=== PATIENT | female | born 1975 | race Caucasian/White ===

== ENCOUNTER 2016-04-27 17:15 | Emergency (ER) | payer OTHER ==
[2016-04-27 17:26] VITALS: BP 136/65; PULSE 68; RESP 16; TEMP 98.1; O2SAT 99
--- NOTE | 2016-04-27 17:45 | UCPHY ---
H & P Patient Type: Established Chief Complaint Nursing Narrative: sore throat x 5 days, fever HPI/ROS: HPI CHIEF COMPLAINT: Sore throat, nasal congestion, anterior maxillary sinus pain, bilateral ear pain HISTORY OF PRESENT ILLNESS: The patient very pleasant 40-year-old female denies any significant medical or surgical history she presents to the urgent care 5 days of sore throat, bilateral ear pain, maxillary sinus pain, congestion and runny nose. No cough, no high fever, no vomiting no shortness of breath no chest pain. Past Medical History: No medical history Past Surgical History: no surgical history Social History: denies daily use drugs alcohol tobacco products Family History: noncontributory ROS REVIEW OF SYSTEMS: A comprehensive 10 point review of systems is otherwise negative aside from elements mentioned in the history of present illness. Exam Constitutional triage nursing summary reviewed, vital signs reviewed, awake/ alert. Eyes normal conjunctivae and sclera, EOMI, PERRLA. HENT bilateral TMs are erythematous, fluid-filled, no significant bulge, posterior pharynx is normal uvula midline, no signs of VERTICAL PUNCH OPERATOR, RPA, Nirav's, no exudate no signs of abscess, no significant lymphadenopathy, normal inspection , atraumatic, moist mucus membranes, no epistaxis, neck supple/ no meningismus, no raccoon eyes. Face: Tender palpation over the maxillary sinus. Respiratory clear to auscultation bilaterally, normal breath sounds, no respiratory distress, no wheezing. Cardiovascular rate normal, regular rhythm, no murmur, no edema, distal pulses normal. Gastrointestinal soft, non-tender, no rebound, no guarding, normal bowel sounds, no distension, no pulsatile mass. Genitourinary no CVA tenderness. Musculoskeletal no midline vertebral tenderness, full range of motion, no calf swelling, no tenderness of extremities, no meningismus, good pulses, neurovascularly intact. Skin pink, warm, & dry, no rash, skin atraumatic. Neurologic awake, alert and oriented x 3, AAOx3, moves all 4 extremities equally, motor intact, sensory intact, CN II-XII intact, normal cerebellar, normal vision, normal speech. Psychiatric normal mood/affect. Heme/Lymph/Immune no lymphadenopathy. Differential Diagnosis: Upper respiratory tract infection, viral syndrome, acute sinusitis, strep pharyngitis Medical Decision Making: This patient appears well here nontoxic as bilateral inflamed TMs with some fluid behind it, anterior maxillary sinus pain and congestion. I will place her on guaifenesin decongestion, azithromycin antibiotic for acute sinusitis and ibuprofen for pain control. She understands drink lots of fluids, return to the urgent care or emergency room if there is any worsening symptoms questions or concerns. Source: Patient - Personal History LMP (Females 10-55): 1-7 Days Ago - Medical/Surgical History Hx Asthma: No Hx Chronic Respiratory Disease: No Hx Diabetes: No Hx Cardiac Disease: No Hx Renal Disease: No Hx Cirrhosis: No Hx Alcoholism: No Hx HIV/AIDS: No Hx Splenectomy or Spleen Trauma: No Other PMH: denies - Family History Significant Family History: No pertinent family hx - Social History Smoking Status: Never smoked Constitutional: Initial Vital Signs Temperature (C) 36.7 C 04/27/16 17:25 Heart Rate 68 04/27/16 17:25 Respiratory Rate 16 04/27/16 17:25 Blood Pressure 136/65 H 04/27/16 17:25 O2 Sat (%) 99 04/27/16 17:25 O2 Delivery Mode Room Air Allergies/Adverse Reactions: No Known Allergies Allergy (Verified 05/03/14 16:49) Home Medications: Medication Instructions Recorded Obcp 06/07/12 AZITHROMYCIN [Z-PACK] 250 mg PO DAILY #6 tab 04/27/16 Guaifenesin [Guaifenesin ER] 600 mg PO BID #14 tab.er.12h 04/27/16 Ibuprofen [Motrin (*)] 800 mg PO Q6-8PRN #7 tab 04/27/16 Medical Decision Making - Data Points Laboratory Results: 04/27/16 04/27/16 Unknown 17:25 Group A Strep Screen NEGATIVE (NEGATIVE) Group A Strep DNA Pending Departure - Departure Disposition: Home, Routine, Self-Care Clinical Impression: Upper respiratory tract infection Qualifiers: URI type: unspecified URI Qualified Code(s): J06.9 - Acute upper respiratory infection, unspecified Sinusitis Qualifiers: Sinusitis location: maxillary Chronicity: acute Recurrence: non-recurrent Qualified Code(s): J01.00 - Acute maxillary sinusitis, unspecified Condition: Good Instructions: Upper Respiratory Infection (ED) Additional Instructions: 1. drink lots of fluids stay well-hydrated 2. take Tylenol or Motrin for fever and pain control. 3.Take antibiotic as prescribed Referrals: Raquel Liu DO [Primary Care Provider] - As per Instructions Prescriptions: AZITHROMYCIN [Z-PACK] 250 mg PO DAILY #6 tab Guaifenesin [Guaifenesin ER] 600 mg PO BID #14 tab.er.12h Ibuprofen [Motrin (*)] 800 mg PO Q6-8PRN #7 tab - PQRS PQRS Measurement: n/a
== END 2016-04-27 18:05 | disposition home or self-care (01) ==
LOC: CED 17:15
DX: J06.9 Acute upper respiratory infection, unspecified (principal); J01.00 Acute maxillary sinusitis, unspecified; H92.03 Otalgia, bilateral
CPT/HCPCS: 87880-PO; 99214-PO; G0463-PO

== ENCOUNTER 2017-04-28 02:22 | Emergency (ER) | payer OTHER ==
[2017-04-28 02:32] VITALS: BP 130/81; PULSE 67; RESP 18; TEMP 97.7; O2SAT 94
--- NOTE | 2017-04-28 02:49 | EDPHY ---
H & P Time Seen by Provider: 04/28/17 02:29 HPI/ROS: CHIEF COMPLAINT: tooth ache HISTORY OF PRESENT ILLNESS: There is been some mild discomfort with food pocket between teeth numbers 10 and 11 off and on for quite some time. However , in the last 24 hr it has become progressively more painful. It is so bad tonight that she cannot sleep. She has tried clear the food pocket as usual numerous times, however it has not helped this time. She does not report any foul drainage or swelling. She complains of pain emanating from the bottom row of the 4 teeth on the right going toward the angle of mandible. She has not sustained any trauma. Of note, is that she is 32 weeks . has been going well. She recalls being on Vicodin post operative several years ago and finding it making her irritable. P worse with opening her mouth Q achiness R no radiation, the bottom for teeth on the right S severe enough that she cannot sleep T progressive over the last 2 days Discharge none Trismus none Trauma none REVIEW OF SYSTEMS: Gen: No fevers or chills. Respiratory: No cough, no dyspnea. Smoking Status: Never smoked Physical Exam: General: Well-developed well-nourished. Nontoxic. HEENT: Membranes moist. No foul odor. There is no trismus. There is no drainage within the mouth nor pointing at the alveolar ridge. . There is no discernible dental decay. Submandibular adenopathy is not noted. She is not tender to percussion of these individual teeth. There is no inflammation at the site in question between teeth numbers 10 and 11. There is no submandibular adenopathy. Constitutional: Initial Vital Signs Temperature (C) 36.5 C 04/28/17 02:29 Heart Rate 67 04/28/17 02:29 Respiratory Rate 18 04/28/17 02:29 Blood Pressure 130/81 H 04/28/17 02:29 O2 Sat (%) 94 04/28/17 02:29 O2 Delivery Mode Room Air Allergies/Adverse Reactions: No Known Allergies Allergy (Verified 04/28/17 02:32) Home Medications: Medication Instructions Recorded Aspirin 81mg (*) 04/28/17 Penicillin V Potassium 500 mg PO QID #40 tablet 04/28/17 Medical Decision Making Procedures: Infraorbital nerve block was achieved using 4 cc of 0.5% Marcaine which she tolerated well. However, it did not work completely. Thereby additional 4 cc was used for combined infraorbital nerve block as well as buccal nerve block. Again this was tolerated well. There is no blood loss. The area was then massaged to enhance distribution. Differential Diagnosis: Diagnostic considerations include, but are not limited to, the following: Abscess, facial abscess, facial cellulitis, Nirav's Angina, Retropharyngeal abscess, deep space facial infection, dental caries. - Data Points Medications Given: Discontinued Medications Penicillin V Potassium (Pen Vk 250 Mg Prepack#6) 1 btl TAKEHOME EDNOW ONE PRN Reason: Protocol Stop: 04/28/17 02:52 Last Admin: 04/28/17 02:57 Dose: 1 btl Departure - Departure Disposition: Home, Routine, Self-Care Clinical Impression: Pain, dental, Dental abscess Condition: Good Instructions: Penicillin V (By mouth), Dental Abscess (ED) Additional Instructions: Clean the area that is suspicious for food pocket after meals and between meals. However, do not over do it. Penicillin 500 mg 4 times daily for the next 10 days. Call your manager managed backup services to see if she should be taking some probiotics with this. No Tylenol for the next 12 hr as you have taken plenty in the last 6 hr. Just to reiterate, no ibuprofen or Aleve. Referrals: Patient,NotPresent [Primary Care Provider] - As per Instructions Prescriptions: Penicillin V Potassium 500 mg PO QID #40 tablet
[2017-04-28] MEDS ORDERED: PENICILLIN VK 250MG PREPACK#6 BTL TAKEHOME ONE (02:51)
== END 2017-04-28 03:29 | disposition home or self-care (01) ==
LOC: CED 02:22
PROC: 3E0X3BZ Introduction of Anesthetic Agent into Cranial Nerves, Percutaneous Approach (ICD-10-PCS; principal; 2017-04-28)
DX: O99.613 Diseases of the digestive system complicating pregnancy, third trimester (principal); K04.7 Periapical abscess without sinus; Z3A.32 32 weeks gestation of pregnancy; Z79.82 Long term (current) use of aspirin

== ENCOUNTER 2017-06-02 20:11 | Emergency (ER) | payer OTHER ==
[2017-06-02 20:33] LABS: PLATELET COUNT 241 10^3/uL (150-400)
--- NOTE | 2017-06-02 20:39 | CPEKG ---
Heart Rate: 62 RR Interval: 968 P-R Interval: 156 QRSD Interval: 94 QT Interval: 436 QTC Interval: 443 P [place]: 57 QRS [place]: 87 T Wave [place]: 45 EKG Severity - ABNORMAL ECG - EKG Impression: SINUS RHYTHM EKG Impression: MULTIPLE VENTRICULAR PREMATURE COMPLEXES Electronically Signed By: Gurpreet Rodriguez 02-Jun-2017 22:22:47
[2017-06-02] MEDS ORDERED: HYOSCYAMINE SULFATE 0.125 MG TAB ONE (20:41)
[2017-06-02] MEDS ORDERED: NS 1,000 ML IV ONE ×2 (20:44→21:45)
[2017-06-02] MEDS ORDERED: ONDANSETRON 4 MG/2 ML VIAL IVP ONE (20:44)
[2017-06-02] MEDS ORDERED: HYOSCYAMINE SULFATE 0.125 MG TAB PO ONE (20:48)
--- NOTE | 2017-06-02 20:54 | CPEKG ---
Heart Rate: 64 RR Interval: 938 P-R Interval: 152 QRSD Interval: 98 QT Interval: 420 QTC Interval: 434 P [place]: 58 QRS [place]: 94 T Wave [place]: 50 EKG Severity - ABNORMAL ECG - EKG Impression: SINUS RHYTHM EKG Impression: MULTIPLE VENTRICULAR PREMATURE COMPLEXES EKG Impression: PROBABLE LEFT ATRIAL ABNORMALITY EKG Impression: BORDERLINE RIGHT AXIS DEVIATION Electronically Signed By: Gurpreet Rodriguez 02-Jun-2017 22:22:59
[2017-06-02] MEDS ORDERED: fentaNYL 100 MCG/2 ML INJ IVP ONE ×2 (20:57→21:03)
[2017-06-02] MEDS ORDERED: IOPAMIDOL (ISOVUE 370) 100 ML BTL IV ONE (21:00)
[2017-06-02] MEDS: fentaNYL 100 MCG/2 ML INJ IVP ONE ×2 (21:05→21:15)
[2017-06-02] MEDS ORDERED: HYDROmorphONE/DILAUDID 2 MG/ML INJ IVP ONE ×3 (21:37→22:17)
[2017-06-02] MEDS ORDERED: ERTAPENEM 1 GM VIAL IV ONE ×2 (21:51→22:03)
[2017-06-02] MEDS ORDERED: PANTOPRAZOLE SODIUM 40 MG VIAL IVP ONE (22:01)
--- NOTE | 2017-06-02 22:07 | EDPHY ---
H & P Stated Complaint: left shoulder pain,abdominal pain for 2hours Time Seen by Provider: 06/02/17 20:31 HPI/ROS: This patient delivered uncomplicated vaginal delivery at [facility] 6 days prior to arrival. She did developfevers and abdominal pain on Monday 3 days after delivery and was evaluated [facility] cleaning a pelvic exam and lumbar punctures she also had a mild headache at that time. She reports that the workup was negative. However after consultation with her OBGYN the felt that she should be covered for potential endometritis and was started on Augmentin antibiotic. She has been taking Augmentin since then with resolution of her fevers. However at 1730 tonight while at rest lying on her right side she developed abrupt onset of left lower chest pain versus left upper quadrant abdominal pain 9/10 intensity sharp in nature, worse with movement and worse with a deep breath. The pain radiates to her left shoulder. She has never had this pain before. She does describe a similar pain of lesser intensity after she had gastric bypass surgery however. She does not feel she has any abdominal distension on the fact she feels she is has less abdominal girth now over the past few days. She is passing gas and having normal bowel movements. ROS: Fevers earlier in the week resolved with Augmentin. No other constitutional symptoms HEENT: No complaints pulmonary: Dyspnea since the onset of pain tonight. She feels this worsens when she lies supine. Cardiovascular: She denies any heart palpitations. She has not noticed any leg swelling or pain. GI: She reports no dark tarry stools. She has nausea but no vomiting. She had been tolerating a normal diet prior to this. Last p.o. Intake was about biite of pizza at 7:30 p.m.. Last meal was lunch time-sandwich : No urinary symptoms. She reports mild persistent lochia rubra that has significantly diminished since delivery. Integumentary: No rash. Neuro: Mild frontal headache currently. She attributed headache since her LP to a spinal headache but reports that has been improving this week. No focal numbness tingling weakness. No confusion. No neck stiffness. Complete review of symptoms is otherwise negative. Source: Patient Exam Limitations: No limitations - Personal History Current Tetanus Diphtheria and Acellular Pertussis (TDAP): Yes Tetanus Vaccine Date: 2017 - Medical/Surgical History PMH: Gastric bypass surgery Family history notable for mother with DVT or PE Hx Asthma: No Hx Chronic Respiratory Disease: No Hx Diabetes: No Hx Cardiac Disease: No Hx Renal Disease: No Hx Cirrhosis: No Hx Alcoholism: No Hx HIV/AIDS: No Hx Splenectomy or Spleen Trauma: No Other PMH: Pre-eclampsia 10 years ago, Bariatric surgery. - Family History Significant Family History: Other (Mother with DVT or PE) - Social History Smoking Status: Never smoked Alcohol Use: None Drug Use: None - Physical Exam Exam: General Appearance: Alert, in distress due to pain. Eyes: Pupils equal and round no pallor or injection. ENT, Mouth: Mucous membranes moist. Respiratory: Quiet slight tachypnea. Cardiovascular: Regular rate and rhythm with occasional extra beats from PVCs. No rub. No JVD. No peripheral edema. No calf swelling or tenderness Gastrointestinal: Hypoactive, soft, exquisite upper belly tenderness epigastrium left upper quadrant. Back: Left CVA tenderness verses referred belly pain. No right CVA tenderness Neurological: GCS 15 with no focal deficits Skin: Notable for pallor. Musculoskeletal: Neck is supple nontender. Extremities are symmetrical, full range of motion. Psychiatric: Alert and anxious due to pain. DIFFERENTIAL DIAGNOSIS: After history and physical exam differential diagnosis was considered for pulmonary embolism, acute abdomen, myocardial ischemic disease, pneumonia, pneumothorax, splenic thrombosis Constitutional: Initial Vital Signs Temperature (C) 36.6 C 06/02/17 21:16 Heart Rate 69 06/02/17 21:16 Respiratory Rate 22 H 06/02/17 21:16 Blood Pressure 138/83 H 06/02/17 21:16 O2 Sat (%) 94 06/02/17 21:16 O2 Delivery Mode Room Air Allergies/Adverse Reactions: adhesive Allergy (Verified 06/02/17 21:07) Home Medications: Medication Instructions Recorded Augmentin 875 MG TAB (*) 06/02/17 CeleXA 20 MG 06/02/17 Medical Decision Making - Diagnostics EKG Interpretation: 12 lead EKG performed at 2036 reveals sinus rhythm at 62 Intervals: Normal throughout [place]: P of 57, QRS of 87, T of 45 degrees presence of multiple PVCs. Overall assessment sinus rhythm with multiple PVCs and borderline right axis deviation. Imaging Results: Imaging Impressions Chest/Thorax CTA 06/02/17 20:49 Impression: 1. No evidence of pulmonary embolus using CT protocol. 2. Small bilateral pleural effusions with some dependent edema at the lung bases posteriorly. 3. Free air within the upper abdomen. This could potentially be related to the previous gastric surgery. Subsequent CT imaging was performed for further characterization of the abdomen and pelvis. Findings discussed with Gurpreet Rodriguez M.D. at 21:55 hour, 06/02/2017. Abdomen/Pelvis CT 06/02/17 21:56 Impression: 1. Free air predominantly in the upper abdomen that appears to originate from gastric bypass surgical clip region just below the GE junction. If indicated, repeat imaging through the upper abdomen can be performed after oral contrast administration as clinically directed. 2. Complex free fluid is seen in the colic gutters extending into the upper iliac fossa bilaterally right side greater than left probably related to blood products. 3. uterus. 4. Mildly dilated small bowel loops within the lower abdomen to upper pelvis that appears to be secondary to focal ileus. Findings discussed with Gurpreet Rodriguez M.D. at 22:28 hour, 06/02/2017. Imaging: Discussed imaging studies w/ traffic engineering technician Radiologist ED Course/Re-evaluation: IV, monitor, normal saline bolus review of labs-normal CBC with sepsis slight anemia crit 34, basic metabolic panel normal Levsin sublingual initially without improvement, Zofran for nausea with improvement 4 mg IV Fentanyl 100 mcg with partial relief prior to CT angio chest Upon return from CT patient is treated with Dilaudid 1 mg IV with partial improvement. I counseled the patient regarding free air evident on CT chest. Patient requested [facility] for her transfer. Transport is call the patient is sent to CT for CT abdomen pelvis while we await for her transport. Patient is given 1 g of Invanz IV push and also treated with Protonix 80 mg IV I spoke with at a [facility] accepts patient for transfer. I spoke with Dr. Mauri Mckeon, general surgeon on-call for [facility] due will see the patient when she arrives at [facility]. At 10:18 p.m. The patient still having severe abdominal pain treated with the 2nd mg of Dilaudid IV She is on her 2nd L saline. Her vitals remained stable. I spoke with Dr. Raya, radiologist about her CT abdomen pelvis the as EMS arrived with findings that appear consistent with perforation at the anastomosis in the upper stomach at the site of her prior gastric bypass. I did speak with Dr. Gibbs regarding the CT abd/pelvis findings while the pt. is enroute to [facility] Total critical care bedside time: 25 min - Data Points Laboratory Results: Laboratory Results 06/02/17 20:30 06/02/17 20:30 06/02/17 06/02/17 06/02/17 20:30 20:30 20:30 WBC RBC Hgb Hct MCV MCH MCHC RDW Plt Count MPV Neut % (Auto) Lymph % (Auto) [place] % (Auto) Eos % (Auto) Baso % (Auto) Nucleat RBC Rel Count Absolute Neuts (auto) Absolute Lymphs (auto) Absolute Monos (auto) Absolute Eos (auto) Absolute Basos (auto) Absolute Nucleated RBC Immature Gran % Immature Gran # Sodium 137 mEq/L mEq/L (135-145) Potassium 3.3 mEq/L L mEq/L (3.5-5.2) Chloride 109 mEq/L mEq/L (97-110) Carbon Dioxide 18 mEq/l L mEq/l (22-31) Anion Gap 10 mEq/L mEq/L (8-16) BUN 16 mg/dL mg/dL (7-23) Creatinine 0.7 mg/dL mg/dL (0.6-1.0) Estimated GFR > 60 Glucose 83 mg/dL mg/dL (70-100) Calcium 8.5 mg/dL mg/dL (8.5-10.4) Troponin I < 0.012 ng/mL ng/mL (0.000-0.034) Lipase 39 IU/L IU/L (23-300) 06/02/17 20:30 WBC 5.33 10^3/uL 10^3/uL (3.80-9.50) RBC 3.88 10^6/uL L 10^6/uL (4.18-5.33) Hgb 11.1 g/dL L g/dL (12.6-16.3) Hct 33.7 % L % (38.0-47.0) MCV 86.9 fL fL (81.5-99.8) MCH 28.6 pg pg (27.9-34.1) MCHC 32.9 g/dL g/dL (32.4-36.7) RDW 15.4 % H % (11.5-15.2) Plt Count 241 10^3/uL 10^3/uL (150-400) MPV 9.8 fL fL (8.7-11.7) Neut % (Auto) 62.2 % % (39.3-74.2) Lymph % (Auto) 31.4 % % (15.0-45.0) [place] % (Auto) 3.1 % L % (4.5-13.0) Eos % (Auto) 0.7 % % (0.6-7.6) Baso % (Auto) 0.4 % % (0.3-1.7) Nucleat RBC Rel Count 0.0 % % (0.0-0.2) Absolute Neuts (auto) 3.39 10^3/uL 10^3/uL (1.70-6.50) Absolute Lymphs (auto) 1.71 10^3/uL 10^3/uL (1.00-3.00) Absolute Monos (auto) 0.17 10^3/uL L 10^3/uL (0.30-0.80) Absolute Eos (auto) 0.04 10^3/uL 10^3/uL (0.03-0.40) Absolute Basos (auto) 0.02 10^3/uL 10^3/uL (0.02-0.10) Absolute Nucleated RBC 0.00 10^3/uL 10^3/uL (0-0.01) Immature Gran % 2.2 % H % (0.0-1.1) Immature Gran # 0.12 10^3/uL H 10^3/uL (0.00-0.10) Sodium Potassium Chloride Carbon Dioxide Anion Gap BUN Creatinine Estimated GFR Glucose Calcium Troponin I Lipase Medications Given: Discontinued Medications Ertapenem (Invanz) 1 gm IV EDNOW ONE PRN Reason: Protocol Stop: 06/02/17 21:52 Last Admin: 06/02/17 21:55 Dose: 1 gm Ertapenem (Invanz) 1 gm IV EDNOW ONE PRN Reason: Protocol Stop: 06/02/17 22:04 Last Admin: 06/02/17 22:23 Dose: Not Given Fentanyl (Sublimaze) 50 mcg IVP EDNOW ONE Stop: 06/02/17 21:04 Last Admin: 06/02/17 21:05 Dose: 50 mcg Fentanyl (Sublimaze) 50 mcg IVP EDNOW ONE Stop: 06/02/17 20:58 Last Admin: 06/02/17 21:13 Dose: 50 mcg Fentanyl (Sublimaze) 50 mcg IVP EDNOW ONE Stop: 06/02/17 20:58 Last Admin: 06/02/17 21:15 Dose: Not Given Hydromorphone HCl (Dilaudid) 1 mg IVP EDNOW ONE Stop: 06/02/17 21:38 Last Admin: 06/02/17 21:48 Dose: 1 mg Hydromorphone HCl (Dilaudid) 1 mg IVP EDNOW ONE Stop: 06/02/17 22:17 Last Admin: 06/02/17 22:21 Dose: 1 mg Hydromorphone HCl (Dilaudid) 1 mg IVP EDNOW ONE Stop: 06/02/17 22:18 Last Admin: 06/02/17 22:24 Dose: Not Given Hyoscyamine Sulfate (Levsin, Hyomax-Sl) 0.25 mg PO EDNOW ONE Stop: 06/02/17 20:49 Last Admin: 06/02/17 20:59 Dose: 0.25 mg Sodium Chloride (Ns) 1,000 mls @ 0 mls/hr IV EDNOW ONE; [place] PRN Reason: Protocol Stop: 06/02/17 20:45 Last Admin: 06/02/17 20:57 Dose: 1,000 mls Ondansetron HCl (Zofran) 4 mg IVP EDNOW ONE Stop: 06/02/17 20:45 Last Admin: 06/02/17 20:45 Dose: 4 mg Pantoprazole Sodium (Protonix) 80 mg IVP EDNOW ONE Stop: 06/02/17 22:02 Last Admin: 06/02/17 22:10 Dose: 80 mg Departure - Departure Disposition: Acute Care Hospital Not [facility] Clinical Impression: Acute abdomen, Free intraperitoneal air Condition: Serious Referrals: Zainab Phelps MD [Primary Care Provider] - As per Instructions
[2017-06-02 22:59] VITALS: BP 104/62; PULSE 79; RESP 21; TEMP 98.8; O2SAT 92
== END 2017-06-02 22:40 | disposition short-term general hospital (02) ==
LOC: CED 20:11
DX: O99.89 Other specified diseases and conditions complicating pregnancy, childbirth and the puerperium (principal); R10.0 Acute abdomen; K66.8 Other specified disorders of peritoneum; O99.63 Diseases of the digestive system complicating the puerperium; E86.9 Volume depletion, unspecified
CPT/HCPCS: 71275-PO; 74176-PO; 80048-PO; 83690-PO; 84484-PO; 85025-PO; 96374; J1170; J1335; J2405; Q9967

== ENCOUNTER 2018-03-26 00:11 | Emergency (ER) | payer OTHER ==
[2018-03-26] MEDS ORDERED: ONDANSETRON 4 MG/2 ML VIAL ONE (00:41)
[2018-03-26] MEDS ORDERED: NS 1,000 ML IV ONE ×2 (00:46→01:20)
--- NOTE | 2018-03-26 00:46 | EDPHY ---
H & P Stated Complaint: "all over" abd pain with nausea since 2015 this evening. Time Seen by Provider: 03/26/18 00:23 HPI/ROS: 42 yo F with hx of gastric bypass, and surgery for gastric ulcer presents c/o nausea, dry heaves, crampy abdominal pain. She denies diarrhea, has had some constipation this weekend. She states her nausea began when her was using a cleaning fluid that she is very sensitive to this evening , and then the pain and dry heaves began around 8pm. Review of systems General no fever no chills no weakness HEENT no eye pain no eye discharge. No eye redness, no sore throat Respiratory no cough, no shortness of breath Cardiac no chest pain, no peripheral edema GI pos abd pain, nausea, dry heaves, no diarrhea, some constipation no flank pain, no hematuria, no dysuria Musculoskeletal no myalgias, no joint pain Heme no easy bruising, no easy bleeding Endo no polyuria, no polydipsia Skin no rashes, no pruritus Neuro no syncope, no dizziness, no headaches Psych is no suicidal ideation, no homicidal ideation Source: Patient, Family Exam Limitations: No limitations - Personal History LMP (Females 10-55): Over 28 Days Ago Current Tetanus Diphtheria and Acellular Pertussis (TDAP): Yes Tetanus Vaccine Date: 2017 - Medical/Surgical History Hx Asthma: No Hx Chronic Respiratory Disease: No Hx Diabetes: No Hx Cardiac Disease: No Hx Renal Disease: No Hx Cirrhosis: No Hx Alcoholism: No Hx HIV/AIDS: No Hx Splenectomy or Spleen Trauma: No Other PMH: Pre-eclampsia 10 years ago, Bariatric surgery, GERD, anxiety. - Family History Significant Family History: No pertinent family hx - Social History Smoking Status: Never smoked Alcohol Use: None Drug Use: None - Physical Exam Exam: 42 yo F alert an oriented , tachyypneic, anxious, pale no diaphoresis, afebrile at,nc eomi, anicteric neck no jvd lungs cta bilat heart rrr abd non dist , bs present, soft , tympanitic, ttp ruq, epigastric, luq no pulsatile mass, no guarding and no rebound ext no cce Constitutional: Initial Vital Signs Temperature (C) 36.7 C 03/26/18 00:18 Heart Rate 76 03/26/18 00:18 Respiratory Rate 22 H 03/26/18 00:18 Blood Pressure 122/76 H 03/26/18 00:18 O2 Sat (%) 97 03/26/18 00:18 O2 Delivery Mode Room Air Allergies/Adverse Reactions: adhesive Allergy (Verified 03/26/18 00:13) Home Medications: Medication Instructions Recorded CeleXA 20 MG 06/02/17 LORazepam [Lorazepam] 03/26/18 Omeprazole 03/26/18 Medical Decision Making ED Course/Re-evaluation: pt seen and evaluated for abdominal pain, nausea iv established, labs drawn iv normal saline 1 liter ondansetron 4 mg ivp lorazepam 1 mg ivp CBC wnl lactate 1.6 cmp nml lfts, bicrb 19, otherwise normal Lipase normal urine dip sp grav 1030, ketones present, neg nit,neg leuk est given a second liter of normal saline she is feeling markedly improved, no further abdominal pain and no nausea, no vomiting Tolerating p.o. Imp Nausea, dehydration Fumes exposure that started the nausea Plan rest dc home return if pain returns f/u pcp Differential Diagnosis: Differential diagnosis considered but not limited to: Cholecystitis, pancreatitis, appendicitis, bowel obstruction, gastroenteritis, enteritis, anxiety, reaction to fume exposure, dehydration - Data Points Laboratory Results: 03/26/18 03/26/18 03/26/18 00:56 00:41 00:40 POC Sodium 141 mEq/L mEq/L (135-145) POC Potassium 4.0 mEq/L mEq/L (3.3-5.0) POC Chloride 110.0 mEq/L mEq/L (97-110) POC Total CO2 19 mEq/L L mEq/L (22-31) POC BUN 15 mg/dL mg/dL (7-23) POC Creatinine 0.8 mg/dL mg/dL (0.6-1.0) POC Glucose 149 mg/dL H mg/dL (70-100) POC Lactic Acid Osmel 1.6 mmol/L mmol/L (0.7-2.1) POC Calcium 9.3 mg/dL mg/dL (8.5-10.4) POC Total Bilirubin 1.3 mg/dL mg/dL (0.1-1.4) POC AST 38 IU/L IU/L (14-46) POC ALT 32 IU/L IU/L (9-52) POC Alk Phosphatase 91 IU/L IU/L (38-126) POC Total Protein 6.8 g/dL g/dL (6.3-8.2) POC Albumin 4.5 g/dL g/dL (3.5-5.0) Lipase 94 IU/L IU/L (23-300) Medications Given: Discontinued Medications Sodium Chloride (Ns) 1,000 mls @ 0 mls/hr IV ONCE ONE PRN Reason: Wide Open Stop: 03/26/18 00:47 Last Admin: 03/26/18 00:50 Dose: 1,000 mls Sodium Chloride (Ns) 1,000 mls @ 0 mls/hr IV EDNOW ONE; Wide Open PRN Reason: Protocol Stop: 03/26/18 01:21 Last Admin: 03/26/18 01:21 Dose: 1,000 mls Lorazepam (Ativan Injection) 1 mg IVP EDNOW ONE Stop: 03/26/18 00:49 Last Admin: 03/26/18 01:01 Dose: 1 mg Ondansetron HCl (Zofran) 4 mg IVP EDNOW ONE Stop: 03/26/18 00:48 Last Admin: 03/26/18 00:49 Dose: 4 mg Ondansetron HCl (Zofran) 4 mg IVP EDNOW ONE Stop: 03/26/18 00:48 Last Admin: 03/26/18 00:59 Dose: Not Given Point of Care Test Results: CBC CBC Collection Date 03/26/18 CBC Collection Time 00:40 WBC 9.4 RBC 4.51 HGB 14.3 HCT 41.9 PLT 272 Neut # 7.8 Neut 82.5 LYMPH # 0.8 LYMPH 8.7 Other WBC # 0.8 Other WBC 8.8 MCV 92.9 Chemistry 03/26/18 00:41 POC Sodium 141 mEq/L mEq/L (135-145) POC Potassium 4.0 mEq/L mEq/L (3.3-5.0) POC Chloride 110.0 mEq/L mEq/L (97-110) POC Total CO2 19 mEq/L L mEq/L (22-31) POC BUN 15 mg/dL mg/dL (7-23) POC Creatinine 0.8 mg/dL mg/dL (0.6-1.0) POC Glucose 149 mg/dL H mg/dL (70-100) POC Calcium 9.3 mg/dL mg/dL (8.5-10.4) POC Total Bilirubin 1.3 mg/dL mg/dL (0.1-1.4) POC AST 38 IU/L IU/L (14-46) POC ALT 32 IU/L IU/L (9-52) POC Alk Phosphatase 91 IU/L IU/L (38-126) POC Total Protein 6.8 g/dL g/dL (6.3-8.2) POC Albumin 4.5 g/dL g/dL (3.5-5.0) Blood Gas/Lactic Acid-Venous 03/26/18 00:56 POC Lactic Acid Osmel 1.6 mmol/L mmol/L (0.7-2.1) Urine Collection Date 03/26/18 Collection Time 00:40 HCG Results Negative Urine Dip Collection Date 03/26/18 Collection Time 01:16 Specific [place] (1.002-1.030) 1.030 PH (5.0-7.5) 5.5 Leukocytes (Negative) Negative Nitrites (Negative) Negative Protein (Negative) Negative Glucose (Negative) Negative Ketones (Negative) 1+ Urobilnogen (0.2-1.0 EU) 0.2 Bilirubin (Negative) Negative Blood (Negative) 2+ Departure - Departure Disposition: Home, Routine, Self-Care Clinical Impression: Nausea, Dehydration, Exposure to industrial fumes Condition: Good Instructions: Acute Nausea and Vomiting (ED) Referrals: NONE *PRIMARY CARE P,. [Primary Care Provider] - As per Instructions [facility] [Provider Group] - As per Instructions
[2018-03-26] MEDS ORDERED: ONDANSETRON 4 MG/2 ML VIAL IVP ONE ×2 (00:47)
[2018-03-26] MEDS ORDERED: LORazepam 2 MG/ML INJ IVP ONE (00:48)
[2018-03-26 02:19] VITALS: BP 129/60
== END 2018-03-26 02:46 | disposition home or self-care (01) ==
LOC: CED 00:11
DX: Z77.098 Contact with and (suspected) exposure to other hazardous, chiefly nonmedicinal, chemicals (principal); R11.0 Nausea; E86.0 Dehydration
CPT/HCPCS: 80053-ER; 83605-ER; 96361-ER; 96374-ER; 96375-ER; 99284-ER; J2060; J2405

== ENCOUNTER → 2018-04-16 | Outpatient (CLI) | payer OTHER | LOC: CLAB 13:28 | PROVIDERS: ATTEND Family Medicine | DX: M79.642 Pain in left hand (principal) | CPT/HCPCS: 73130-PO ==

== ENCOUNTER → 2018-08-09 | Outpatient (CLI) | payer OTHER | LOC: BMCIMAGING 10:53 ==